=== PATIENT | female | born 1930 | race Caucasian/White ===

== ENCOUNTER 2018-07-29 13:09 | Inpatient (IN) | payer MEDICARE, BC ==
[2018-07-29] MEDS: oxyCODONE 5 MG Tab PO PRN ×2 (16:33→20:24)
[2018-07-29] MEDS: Dicyclomine 10 MG Cap PO SCH (20:19)
[2018-07-29] MEDS: busPIRone 5 MG Tab PO SCH (20:19)
[2018-07-29] MEDS: Metoprolol Tartrate 50 MG Tab PO SCH (20:20)
[2018-07-29] MEDS: Simvastatin 20 MG Tab PO SCH (20:25)
[2018-07-29] MEDS: Calcium Carbonate 750 MG Tab.Chew PO SCH (20:26)
[2018-07-29] MEDS: Acetaminophen 500 MG Tab PO SCH (20:26)
--- NOTE | 2018-07-30 01:05 | HP ---
CHIEF COMPLAINT: Right hip fracture. HISTORY OF PRESENT ILLNESS: This is an 87-year-old female who was at home trying to close a garage door on Wednesday when she fell onto her right hip, arm, and head and broke a right impacted femoral neck fracture. She sought medical care the next day and ended up having surgery with a hip replacement. She states the pain is pretty bad right now because of the drive over from [place] and has been using some oxycodone. She did have acute blood loss anemia with her hemoglobin preoperatively at 11.5, yesterday at 7.6, and today at 7.4. She does feel a little weak and tired, but has not had any cough. No shortness of breath. She had 1 small bowel movement after a suppository. She is on Lovenox for DVT prophylaxis. The patient at one point did take Fosamax in 2010, but it appeared to have been stopped in around 2014 because she was not taking it. However, the patient unfortunately was on prednisone for a time in 2014 for some polymyalgia and then required it again briefly in 2017. Otherwise, her last DEXA scan was done in 2013, which showed her T-score to be -1.8 at the right femoral neck. ALLERGIES: Include penicillin and erythromycin, caused itching; Norvasc causes edema at higher doses; and trazodone makes her groggy. MEDICATIONS: List was reviewed, and she is actually on lisinopril 20 mg 1.5 daily; vitamin D 2000 units daily; calcium 600 b.i.d.; Norvasc 5 mg daily; Bentyl 10 mg twice daily; metoprolol 100 mg twice daily; Senokot 1 twice daily; Tylenol 1000 mg 3 times a day; aspirin 81 mg daily; BuSpar 15 mg at bedtime; Prilosec 20 mg daily; Zocor 20 mg daily; Lovenox 40 mg daily, last dose on 08/23; and oxycodone 5 mg every 4 hours as needed for severe pain. Hydrochlorothiazide was placed on hold. Nitroglycerin was also placed on hold. PAST MEDICAL HISTORY: Does include, 1. Coronary artery disease with previous stenting back in 1999 and then 2000. 2. She has had a previous C. diff colitis after antibiotics. 3. She has had anxiety. 4. She had a previous colon perforation after colonoscopy in 2014, which was repaired emergently. 5. She has had diastolic heart failure. 6. She has had previous UTIs with E. coli, last treated in 07/2017. 7. She has had GERD without esophagitis. 8. She has had hyperlipidemia. 9. Essential hypertension. 10.Mitral regurgitation, which has EF 50%, asymptomatic. 11.Osteoarthritis, previous cortisone in the right hip with early degenerative changes back in 2011. 12.Previous osteopenia. 13.Previous polymyalgia rheumatica, more so chest pain, ESR over 100. 14.PVCs. 15.History of cataracts. 16.History of abdominal hysterectomy for no cancer. 17.Previous colon polyps. 18.B12 deficiency. She is due for B12 shot next week. PAST SURGICAL HISTORY: As already listed above. FAMILY HISTORY: Both parents are . She had a mother who had a heart attack and anxiety. Sister had a heart attack, another one who had heart disease and hypertension. Brother with diabetes. She has a daughter who had breast cancer. SOCIAL HISTORY: The patient is . 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 She is a nonsmoker, nondrinker. REVIEW OF SYSTEMS: General: No weight loss. No fever, no chills. HEENT: No sore throat. CARDIAC: No chest pain. No palpitations. RESPIRATORY: No cough. No shortness of breath. ABDOMEN: Some constipation. Otherwise, no nausea. Otherwise, all systems reviewed and found to be negative unless otherwise stated. PHYSICAL EXAMINATION: Vital Signs: On arrival, she was in pain, but her blood pressure did improve after waiting, initially 163/53, then 151/51. Weight 81.3 kg. Temp 99.2, pulse 79, respiratory rate 20, and O2 of 96 on room air. General: She is in no acute distress. HEART: Regular rate and rhythm. Lungs: Lung sounds are clear to auscultation bilaterally without crackles or wheezes. Abdomen: Nondistended, nontender. Extremities: Warm and dry. No edema. No calf tenderness. Mental Status: She is alert and orientated x3. Skin: The right hip is examined. She does have a glued incision without redness or drainage. Dorsal pedis pulses are 2+. Her skin does overall appear pale. LABORATORY DATA: Besides her hemoglobin which I mentioned in the HPI, her creatinine was checked today and was 0.8, and her electrolytes on the were acceptable, potassium 3.8, albumin was mildly low at 3.2. Glucose was 128. ASSESSMENT: 1. Right hip fracture, status post total hip arthroplasty on 07/26 for a right impacted femoral neck fracture. 2. Acute blood loss anemia secondary to surgery. The patient will have a hemoglobin check on Wednesday. 3. Deep vein thrombosis prophylaxis. She will be on Lovenox. 4. Essential hypertension, mildly elevated, likely due to pain. She is not having any edema. We will continue to monitor and restart the hydrochlorothiazide 12.5 mg daily if needed. 5. Hyperlipidemia and history of coronary disease. She will continue her simvastatin. 6. Gastroesophageal reflux disease. She is on omeprazole. 7. Chronic diastolic heart failure, stable without exacerbation. Ejection fraction 50%. She did not require any IV Lasix. 8. Anxiety. We will continue the home meds. PLAN: At this point, the patient will be admitted for swing bed cares with PT, OT. We will continue Lovenox until 08/23 for DVT prophylaxis. She will follow up with [facility] next month. She will be on incentive spirometry. We will check lab work on Wednesday. We will encourage a diet. We will hold off on starting any iron at this point until her bowels start moving better. We will give her scheduled stool softeners. Otherwise, she elects to be a code level 3. She does not want any CPR. Her daughter was there for the discussion. MKA: 07/29/2018 18:17:42 MODL: 07/30/2018 00:59:20 /[id number]
[2018-07-30] MEDS: oxyCODONE 5 MG Tab PO PRN ×4 (04:16→20:13)
[2018-07-30] MEDS: Omeprazole 20 MG Cap.CR PO SCH (06:05)
[2018-07-30] MEDS: Cholecalciferol (Vitamin D3) 1,000 Unit Tab PO SCH (09:19)
[2018-07-30] MEDS: Dicyclomine 10 MG Cap PO SCH ×2 (09:19→20:07)
[2018-07-30] MEDS: Aspirin 81 MG Tab.EC PO SCH (09:21)
[2018-07-30] MEDS: Acetaminophen 500 MG Tab PO SCH ×3 (09:21→20:14)
[2018-07-30] MEDS: Calcium Carbonate 750 MG Tab.Chew PO SCH ×2 (09:23→20:15)
[2018-07-30] MEDS: Lisinopril 10 MG Tab PO SCH (09:25)
[2018-07-30] MEDS: Metoprolol Tartrate 50 MG Tab PO SCH ×2 (09:26→20:11)
[2018-07-30] MEDS: amLODIPine 5 MG Tab PO SCH (09:27)
[2018-07-30] MEDS: Enoxaparin 40 MG/0.4 ML Syringe SUBCUT SCH (09:28)
[2018-07-30] MEDS: busPIRone 5 MG Tab PO SCH (20:08)
[2018-07-30] MEDS: Simvastatin 20 MG Tab PO SCH (20:14)
[2018-07-31] MEDS: oxyCODONE 5 MG Tab PO PRN ×3 (04:28→19:25)
[2018-07-31] MEDS: Omeprazole 20 MG Cap.CR PO SCH ×2 (04:29→06:09)
[2018-07-31] MEDS: Acetaminophen 500 MG Tab PO SCH ×4 (08:03→19:31)
[2018-07-31] MEDS: Cholecalciferol (Vitamin D3) 1,000 Unit Tab PO SCH (08:04)
[2018-07-31] MEDS: amLODIPine 5 MG Tab PO SCH (08:05)
[2018-07-31] MEDS: Metoprolol Tartrate 50 MG Tab PO SCH ×2 (08:06→19:28)
[2018-07-31] MEDS: Aspirin 81 MG Tab.EC PO SCH (08:07)
[2018-07-31] MEDS: Lisinopril 10 MG Tab PO SCH (08:07)
[2018-07-31] MEDS: Calcium Carbonate 750 MG Tab.Chew PO SCH ×2 (08:08→19:30)
[2018-07-31] MEDS: Dicyclomine 10 MG Cap PO SCH ×2 (08:08→19:26)
[2018-07-31] MEDS: Enoxaparin 40 MG/0.4 ML Syringe SUBCUT SCH (08:08)
[2018-07-31] MEDS: busPIRone 5 MG Tab PO SCH (19:26)
[2018-07-31] MEDS: Simvastatin 20 MG Tab PO SCH (19:29)
[2018-08-01] MEDS: oxyCODONE 5 MG Tab PO PRN ×3 (01:36→19:32)
[2018-08-01] MEDS: Omeprazole 20 MG Cap.CR PO SCH ×2 (05:26→06:00)
[2018-08-01] MEDS: Calcium Carbonate 750 MG Tab.Chew PO SCH ×2 (08:00→19:31)
[2018-08-01] MEDS: Enoxaparin 40 MG/0.4 ML Syringe SUBCUT SCH (08:01)
[2018-08-01] MEDS: Acetaminophen 500 MG Tab PO SCH ×3 (08:01→19:33)
[2018-08-01] MEDS: Aspirin 81 MG Tab.EC PO SCH (08:01)
[2018-08-01] MEDS: Cholecalciferol (Vitamin D3) 1,000 Unit Tab PO SCH (08:01)
[2018-08-01] MEDS: Lisinopril 10 MG Tab PO SCH (08:02)
[2018-08-01] MEDS: amLODIPine 5 MG Tab PO SCH (08:02)
[2018-08-01] MEDS: Metoprolol Tartrate 50 MG Tab PO SCH ×2 (08:03→19:27)
[2018-08-01] MEDS: Dicyclomine 10 MG Cap PO SCH ×2 (08:04→19:26)
--- NOTE | 2018-08-01 17:06 | PCM.SN ---
- Free Text/Narrative Note: Doing well, pain controlled. Hgb improved to 8 over the weekend. Working with PT, having BM's probably will be d/c later in the week. CBC again on 08/04 continue Lovenox.
[2018-08-01] MEDS: busPIRone 15 MG Tab PO SCH (19:27)
[2018-08-01] MEDS: Simvastatin 20 MG Tab PO SCH (19:33)
[2018-08-02] MEDS: oxyCODONE 5 MG Tab PO PRN ×4 (01:55→19:25)
[2018-08-02] MEDS: Omeprazole 20 MG Cap.CR PO SCH ×2 (05:31→08:19)
[2018-08-02] MEDS: Cholecalciferol (Vitamin D3) 1,000 Unit Tab PO SCH (08:19)
[2018-08-02] MEDS: Lisinopril 10 MG Tab PO SCH (08:20)
[2018-08-02] MEDS: Metoprolol Tartrate 50 MG Tab PO SCH ×2 (08:20→19:21)
[2018-08-02] MEDS: Acetaminophen 500 MG Tab PO SCH ×3 (08:20→19:23)
[2018-08-02] MEDS: Enoxaparin 40 MG/0.4 ML Syringe SUBCUT SCH (08:20)
[2018-08-02] MEDS: amLODIPine 5 MG Tab PO SCH (08:20)
[2018-08-02] MEDS: Aspirin 81 MG Tab.EC PO SCH (08:20)
[2018-08-02] MEDS: Calcium Carbonate 750 MG Tab.Chew PO SCH ×2 (08:21→19:22)
[2018-08-02] MEDS: Dicyclomine 10 MG Cap PO SCH ×2 (08:22→19:20)
[2018-08-02] MEDS: busPIRone 15 MG Tab PO SCH (19:22)
[2018-08-02] MEDS: Simvastatin 20 MG Tab PO SCH (19:25)
[2018-08-03] MEDS: Omeprazole 20 MG Cap.CR PO SCH (05:59)
[2018-08-03] MEDS: oxyCODONE 5 MG Tab PO PRN ×4 (05:59→18:47)
[2018-08-03] MEDS: Enoxaparin 40 MG/0.4 ML Syringe SUBCUT SCH (08:48)
[2018-08-03] MEDS: Cholecalciferol (Vitamin D3) 1,000 Unit Tab PO SCH (08:48)
[2018-08-03] MEDS: Lisinopril 10 MG Tab PO SCH (08:49)
[2018-08-03] MEDS: Acetaminophen 500 MG Tab PO SCH ×3 (08:49→20:05)
[2018-08-03] MEDS: Metoprolol Tartrate 50 MG Tab PO SCH ×2 (08:50→20:01)
[2018-08-03] MEDS: Aspirin 81 MG Tab.EC PO SCH (08:51)
[2018-08-03] MEDS: amLODIPine 5 MG Tab PO SCH (08:51)
[2018-08-03] MEDS: Dicyclomine 10 MG Cap PO SCH ×2 (09:03→20:00)
[2018-08-03] MEDS: Calcium Carbonate 750 MG Tab.Chew PO SCH ×2 (10:00→20:04)
[2018-08-03] MEDS: busPIRone 15 MG Tab PO SCH (20:00)
[2018-08-03] MEDS: Simvastatin 20 MG Tab PO SCH (20:00)
[2018-08-04] MEDS: oxyCODONE 5 MG Tab PO PRN ×3 (00:02→16:33)
[2018-08-04] MEDS: Omeprazole 20 MG Cap.CR PO SCH (06:23)
[2018-08-04] MEDS: Acetaminophen 500 MG Tab PO SCH ×3 (07:46→20:11)
[2018-08-04] MEDS: Enoxaparin 40 MG/0.4 ML Syringe SUBCUT SCH (07:46)
[2018-08-04] MEDS: Metoprolol Tartrate 50 MG Tab PO SCH ×2 (07:47→20:15)
[2018-08-04] MEDS: Lisinopril 10 MG Tab PO SCH (07:47)
[2018-08-04] MEDS: Aspirin 81 MG Tab.EC PO SCH (07:47)
[2018-08-04] MEDS: Cholecalciferol (Vitamin D3) 1,000 Unit Tab PO SCH (07:48)
[2018-08-04] MEDS: amLODIPine 5 MG Tab PO SCH (07:48)
[2018-08-04] MEDS: Calcium Carbonate 750 MG Tab.Chew PO SCH ×2 (07:49→20:18)
[2018-08-04] MEDS: Dicyclomine 10 MG Cap PO SCH ×2 (07:55→20:09)
[2018-08-04] MEDS ORDERED: Gabapentin 100 MG Cap PO ONE (11:16)
[2018-08-04] MEDS ORDERED: Gabapentin 100 MG Cap PO SCH (20:00)
[2018-08-04] MEDS: busPIRone 15 MG Tab PO SCH (20:08)
[2018-08-04] MEDS: Simvastatin 20 MG Tab PO SCH (20:09)
[2018-08-05 06:46] VITALS: BP 183/59
[2018-08-05] MEDS: Omeprazole 20 MG Cap.CR PO SCH (07:33)
[2018-08-05] MEDS: Acetaminophen 500 MG Tab PO SCH ×2 (08:22→12:31)
[2018-08-05] MEDS: Lisinopril 10 MG Tab PO SCH (08:22)
[2018-08-05] MEDS: Cholecalciferol (Vitamin D3) 1,000 Unit Tab PO SCH (08:22)
[2018-08-05] MEDS: Metoprolol Tartrate 50 MG Tab PO SCH (08:23)
[2018-08-05] MEDS: Aspirin 81 MG Tab.EC PO SCH (08:23)
[2018-08-05] MEDS: amLODIPine 5 MG Tab PO SCH (08:23)
[2018-08-05] MEDS: Enoxaparin 40 MG/0.4 ML Syringe SUBCUT SCH (08:23)
[2018-08-05] MEDS: Dicyclomine 10 MG Cap PO SCH (08:23)
[2018-08-05] MEDS: Calcium Carbonate 750 MG Tab.Chew PO SCH (08:24)
[2018-08-05] MEDS ORDERED: Hydrochlorothiazide 12.5 MG Cap PO SCH (10:15)
[2018-08-05] MEDS ORDERED: Gabapentin 100 MG Cap PO SCH (10:15)
--- NOTE | 2018-08-05 13:01 | DISCH ---
PRIMARY DISCHARGE DIAGNOSES: 1. Acute right hip fracture status post surgery on 07/26/2018 with a total hip arthroplasty for the impacted femoral neck fracture. 2. Acute blood loss anemia after surgery. Hemoglobin was stable at 7.7 on discharge. 3. Deep venous thrombosis prophylaxis with Lovenox. The patient prefers oral pills. We are looking at Xarelto 10 mg daily for another 25 doses or considering other options working with the pharmacy. 4. Essential hypertension with elevated blood pressures up to 189 to 59 on the day of discharge, but had had several other high readings during her stay. Her hydrochlorothiazide had been stopped in [place] and will be restarted on discharge at 12.5 mg daily. 5. Remote history of coronary artery disease. 6. Chronic diastolic heart failure, stable without exacerbation. 7. Anxiety, on home medications. 8. Gastroesophageal reflux disease. 9. Some burning pain in her groin with walking, responded extremely well to Neurontin, which helped her to cut back on the oxycodone pain pills and allowed her to sleep better at night. Last dose of oxycodone 4 p.m. yesterday, she was taking up to 3 per day. REASON FOR ADMISSION: On the date of admission, this 87-year-old female who is quite healthy and still works full-time had unfortunately fallen and broken her hip, which she had fixed in [place] and then was transferred to [place] for further swing bed cares. She had blood work monitored for her postoperative anemia, which did not require transfusion. She had no chest pain and no shortness of breath, but did have concerns over the elevated blood pressure readings. She had a little bit more swelling, which was noted in that right lower extremity, but she had no calf pain or tenderness. She was getting Lovenox for DVT prophylaxis. Her platelet count was normal. Hemoglobin was 8 and then 7.7 here, but was down around 7 before transfer in [place]. DISCHARGE PLANS AND INSTRUCTIONS: She will follow up in the clinic with Dr. Barba in 2 weeks' time. She will be on Home Health on discharge. She will be using the [employer] stocking at home. She will have lab work for a BMP and CBC at her followup visit with myself. She will be on the Xarelto for DVT prophylaxis for 35 days total. She is restarted on hydrochlorothiazide 12.5 mg daily; otherwise, Neurontin will be 100 mg twice daily with a small supply 8 pills of oxycodone to use if needed. The patient otherwise will not drive until cleared by myself or her orthopedic surgeon. Her incision had been looking excellent. No tasneem were there and needed to be removed. DISCHARGE EXAMINATION: Vital Signs: Does show her temperature at 98.1, pulse 72, blood pressure 175/59, respiratory rate 16, and O2 of 100 on room air. General: She is in no acute distress. Heart: Regular rate and rhythm. Lungs: Lung sounds are clear to auscultation bilaterally without crackles or wheezes. Extremities: Warm and dry. Trace edema over that left ankle. Mental Status: Alert and orientated x3. [id number] encounter occurred for Home Health on 08/05/2018. The primary reason for Home Health is teaching and assessments by Physical Therapy and Nursing as well as Occupational Therapy to manage at home due to impaired mobility with the recent event and hip fracture, to monitor blood pressure and medication changes. The patient's ability to leave her home without the assist of another has been impacted by this recent fracture and need for a walker and assistance to travel distances, and she is not going to be driving. Otherwise, I will periodically review this plan of care. MKA: 08/05/2018 10:16:48 MODL: 08/05/2018 12:58:04 /[id number]
--- NOTE | 2018-08-05 17:10 | PCM.SN ---
- Free Text/Narrative Note: Her son had already picked up lovenox so she will use that instead of the 300 per month Xarelto.
== END 2018-08-05 13:30 | disposition home health service (06) | DRG 560 ==
LOC: VM.MS 15:32
PROVIDERS: ADMIT Internal Medicine; ATTEND Internal Medicine
DX: Z47.1 Aftercare following joint replacement surgery (principal); D62 Acute posthemorrhagic anemia; I50.32 Chronic diastolic (congestive) heart failure; I25.10 Atherosclerotic heart disease of native coronary artery without angina pectoris; I11.0 Hypertensive heart disease with heart failure; F41.9 Anxiety disorder, unspecified; K21.9 Gastro-esophageal reflux disease without esophagitis; Z96.641 Presence of right artificial hip joint; E78.5 Hyperlipidemia, unspecified; Z90.710 Acquired absence of both cervix and uterus; Z79.01 Long term (current) use of anticoagulants; Z86.718 Personal history of other venous thrombosis and embolism; Z88.1 Allergy status to other antibiotic agents; Z79.899 Other long term (current) drug therapy; Z95.5 Presence of coronary angioplasty implant and graft; Z87.440 Personal history of urinary (tract) infections; Z88.0 Allergy status to penicillin; Z88.8 Allergy status to other drugs, medicaments and biological substances
CPT/HCPCS: 36415; 85025; 97110-GP; 97116-GP; 97161-GP; 97165-GO; A9270-GY; J1650